=== PATIENT | female | born 1970 | race Caucasian/White ===

== ENCOUNTER 2020-10-16 00:16 | Emergency (ER) | payer BC ==
--- NOTE | 2020-10-16 00:45 | EDM.PDOC ---
ED HPI GENERAL MEDICAL PROBLEM - General Chief Complaint: General Stated Complaint: PASSED OUT Time Seen by Provider: 10/16/20 00:29 Source of Information: Reports: Patient History Limitations: Reports: No Limitations - History of Present Illness INITIAL COMMENTS - FREE TEXT/NARRATIVE: Jenny Henderson presents via triage during covid pandemic for concerns of "passing out" at home tonight after having severe intense abdominal pain associated with hand itching. Patient had no fever, runny nose, sore throat, cough, change in taste or smell. She has a history of exercise-induced asthma and celery induced allergic reaction/anaphylaxis per her report. upon ED arrival, patient notes ongoing hand itching. History obtained from the patient and her . Patient notes that she at home having normal day she felt acute lower abdominal cramps and had the urge to use the bathroom. She went to the bathroom and then her found her on the floor as if she had passed out. Patient is awake and talking without seizure activity. She not bite her tongue or lose control of her bowel or bladder. She is then had ongoing lower abdominal cramps and headache profuse loose watery nonbloody stool. Patient's note she passed out for approximate 10 seconds. Notes she is perimenopausal. has a vasectomy and denies any chance being . She denies any headache, chest pain, palpitations, shortness of breath, ongoing abdominal pain, loose or bloody stools prior to those event. She is Covid vaccinated. Patient's today has had malaise himself and he is concerned she could have Covid. 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 She is perimenopausal. has a vasectomy. Patient denies any fever, runny nose, sore throat, cough, change in taste or smell. No headache. No chest pain. No palpitations. No ongoing abdominal pain. She reports mild hand itching that occurred after the above diarrhea. She has had no sick or ill contacts although her feels like he has malaise today. She has no other complaints and denies any tongue swelling lip swelling shortness of breath or palpitations/chest pain. Per patient she denies any history of heart disease, DVT, PE, calf pain, calf swelling hemoptysis or shortness of breath. She notes she now feels normal except for mild hand itching. Abdomen Pain Score (Numeric/FACES): 3 - Related Data Allergies Allergy/AdvReac Type Severity Reaction Status Date / Time celery Allergy Anaphylactic Verified 10/16/20 00:19 Shock Home Meds: Home Meds Loratadine [Claritin] 1 tab PO DAILY PRN 10/16/20 [History] Past Medical History HEENT History: Reports: Impaired Vision REGISTERED NURSES History: Reports: - Infectious Disease History Infectious Disease History: Reports: Chicken Pox Social & Family History - Family History Family Medical History: No Pertinent Family History - Tobacco Use Tobacco Use Status *Q: Never Tobacco User - Caffeine Use Caffeine Use: Reports: None - Recreational Drug Use Recreational Drug Use: No ED ROS GENERAL - Review of Systems Review Of Systems: See Below (all other 10 negative) Free Text/Narrative/Comment: all other 10 neg. ED EXAM, GENERAL - Physical Exam Exam: See Below Exam Limited By: No Limitations General Appearance: Alert, No Apparent Distress Eye Exam: Bilateral Eye: Other (no injection. anicteric. normal ) Ears: Hearing Grossly Normal Nose: Normal Inspection. No: Clear Rhinorrhea, Nasal Flaring Throat/Mouth: Normal Inspection, Normal Lips, Normal Teeth, Normal Gums, Normal Oropharynx, Normal Voice, No Airway Compromise Neck: Normal Inspection, Non-Tender, Full Range of Motion Respiratory/Chest: No Respiratory Distress, Lungs Clear, Normal Breath Sounds, No Accessory Muscle Use. No: Respiratory Distress, Decreased Breath Sounds, Crackles, Rales, Rhonchi, Wheezing, Stridor, Accessory Muscle Use Cardiovascular: Normal Peripheral Pulses, Regular Rate, Rhythm, No Edema, No Gallop, No JVD, No Murmur, No Rub. No: Tachycardia, Systolic Murmur Peripheral Pulses: 4+: Radial (L), Radial (R) GI/Abdominal: Normal Bowel Sounds, Soft, Non-Tender, No Organomegaly, No Distention, No Mass. No: No Abnormal Bruit, Distended, Guarding, Rebound, Tender, Abnormal Bowel Sounds, Mass, Hepatomegaly, Splenomegaly Back Exam: Normal Inspection, Full Range of Motion Extremities: Normal Inspection, Normal Range of Motion, Non-Tender, No Pedal Edema, Normal Capillary Refill, Other (There is no redness or swelling the hands. There is no petechia or purpura Refill is normal.). No: Pedal Edema, Joint Swelling, Leg Pain, Mottled, Pallor, Redness Neurological: Alert, Oriented, Normal Cognition, Normal Gait, No Motor/Sensory Deficits, Other (gcs 15. intact memory. fluent speech. EOMI. Cn 2-7 normal). No: Inattentive, Confused, Disoriented, Slow to Respond, Unresponsive Psychiatric: Normal Affect, Normal Mood Skin Exam: Warm, Dry, Intact, Normal Color, No Rash Lymphatic: No Adenopathy #1 Interpretation EKG Date: 10/16/20 Time: 00:54 Rhythm: NSR Rate (Beats/Min): 59 [place]: Normal P-Wave: Present QRS: Normal ST-T: Normal QT: Normal Comparison: NA - No Prior EKG (Normal QT. No Brugada. No delta wave.) Course - Vital Signs Text/Narrative:: verbal report from ED RN history and physical broad Ddx reviewed and life threat considered. 0145: patient rechecked. cardiac monitoring over ED course,is normal. patient notes she feels fine. is watching TV and no complaints. 0159: lab notes covid test is negative. MDM: Patient had a brief syncopal event lasting approximate 10 seconds which was preceded by abdominal cramps and associate with loose watery nonbloody stool. Patient has had no headache, chest pain, palpitations, shortness of breath, calf coco,n calf swelling or ongoing abdominal symptoms. She has no signs anaphylaxis or serious allergic reaction at this time. I doubt subarachnoid hemorrhage, malignant intrathoracic process, malignant dysrhythmia, PE, ACS. EKG is without signs of Brugada syndrome, prolonged QTC or [id number]. case monitor in the ER is been reassuring. Patient has lack risk factors for PE, no chest pain no hypoxemia and no tachycardia. She has no ongoing abdominal pain or suggestion of intra-abdominal life threat/vascular catastrophe or abdominal aortic aneurysm. She is not likely to have a ectopic or related issue today. Symptoms are most consistent with a vagal event/nonemergent syncopal event associated with crampy and abd pain and loose stools-both of which have fully abated/resolved. Per patient's was concerned with the possibly of Covid due to the diarrhea. Covid test was obtained today and as above. Patient is medically stable this time. sx most c/w vagal event after abd cramps. no signs of anaphylaxis or serious emergent process today. This dictation was completed with voice recognition as such spelling, grammar or punctuation errors may be present. At times conditions evolve or change. If patient worsens or develops symptoms per discharge directions return to emerge department. She should not drive tonight. Last Recorded V/S: Last Vital Signs Temp 36.4 C 10/16/20 00:20 Pulse 59 L 10/16/20 00:20 Resp 13 10/16/20 00:20 BP 114/74 10/16/20 00:20 Pulse Ox 100 10/16/20 00:20 - Orders/Labs/Meds Orders: Active Orders 24 hr Category Date Time Status EKG 12 Lead [EK] Stat Ther 10/16/20 00:46 Ordered Labs: Laboratory Tests 10/16/20 10/16/20 10/16/20 Range/Units 00:45 00:56 00:56 WBC 9.7 (4.5-11.0) K/uL RBC 4.35 (3.30-5.50) M/uL Hgb 13.3 (12.0-15.0) g/dL Hct 40.5 (36.0-48.0) % MCV 93 (80-98) fL MCH 31 (27-31) pg MCHC 33 (32-36) % Plt Count 208 (150-400) K/uL Neut % (Auto) 66.1 H (36-66) % Lymph % (Auto) 23.5 L (24-44) % Gladwin % (Auto) 7.2 H (2-6) % Eos % (Auto) 2.9 (2-4) % Baso % (Auto) 0.3 (0-1) % Sodium 137 L (140-148) mmol/L Potassium 3.7 (3.6-5.2) mmol/L Chloride 102 (100-108) mmol/L Carbon Dioxide 30 (21-32) mmol/L Anion Gap 8.7 (5.0-14.0) mmol/L BUN 20 H (7-18) mg/dL Creatinine 1.1 H (0.6-1.0) mg/dL Est Cr Clr Drug Dosing 59.50 mL/min Estimated GFR (MDRD) 53 L (>60) Glucose 119 H (74-106) mg/dL Calcium 8.3 L (8.5-10.1) mg/dL SARS-CoV-2 RNA (ESTELA) Negative (NEGATIVE) Meds: Medications Discontinued Medications Generic Name Dose Route Start Last Admin Trade Name Wilber PRN Reason Stop Dose Admin Diphenhydramine HCl 25 mg 10/16/20 00:47 10/16/20 00:51 Diphenhydramine 25 Mg Cap PO 10/16/20 00:48 25 mg ONETIME ONE Administration Departure - Departure Time of Disposition: 02:02 (with ) Disposition: Home, Self-Care 01 Condition: Good Clinical Impression: Syncope, Diarrhea, Pruritic condition - Discharge Information Instructions: Pruritus, Diarrhea, Adult, Syncope, [id number] Referrals: PCP,None [Primary Care Provider] - (routine ED follow up, or return to ED per discharge instructions. ) Forms: ED Department Discharge Additional Instructions: Rest today. Do not drive. Please return to the emergency department if your temperature is above 100.4, facial or lip swelling, tongue swelling, shortness of breath, chest pain or bloody or black stools. Please return if headache, confusion, heart racing, abdominal pain, recurrent episodes of passing out. See attached instructions for syncopal event, diarrhea and itching. Sepsis Event Note (ED) - Evaluation Sepsis Screening Result: No Definite Risk - Focused Exam Vital Signs: Vital Signs Temp Pulse Resp BP Pulse Ox 10/16/20 00:20 36.4 C 59 L 13 114/74 100 - My Orders Last 24 Hours: My Active Orders 10/16/20 00:46 EKG 12 Lead [EK] Stat - Assessment/Plan Last 24 Hours: My Active Orders 10/16/20 00:46 EKG 12 Lead [EK] Stat
[2020-10-16] MEDS ORDERED: diphenhydrAMINE 25 MG Cap PO ONE (00:47)
== END 2020-10-16 02:10 | disposition home or self-care (01) ==
LOC: JP.ED 00:16
DX: R55 Syncope and collapse (principal); R19.7 Diarrhea, unspecified; L29.9 Pruritus, unspecified; Z91.09 Other allergy status, other than to drugs and biological substances; Z20.822 Contact with and (suspected) exposure to COVID-19
CPT/HCPCS: 36415; 80048; 85025; 87635; 93005; 99284; A9270; U0002